=== PATIENT | female | born 1980 | race Caucasian/White ===

== ENCOUNTER 2018-11-04 12:30 | Inpatient (IN) | payer OTHER ==
[~2018-11-04] VITALS: Ht 165.1 cm; Wt 95.5 kg
[2018-11-04 01:30] VITALS: BP 154/83; PULSE 76; RESP 19
[~2018-11-04 12:30] MED LIST: METH-480 PO; PNV1TABL43 PO
[2018-11-04 17:07] VITALS: Ht 165.1 cm; Wt 95.5 kg
[2018-11-04] MEDS ORDERED: LACTATED RINGER'S 1,000 ML IV SCH ×2 (17:10→23:11)
[2018-11-04] MEDS ORDERED: LABE200T25 PO (17:10)
[2018-11-04] MEDS ORDERED: OXYTOCIN 30 UNITS/LR 500 ML IV SCH ×2 (17:30→23:11)
[2018-11-04] MEDS ORDERED: MISOPROSTOL 200 MCG TAB PR PRN ×2 (17:30→23:30)
[2018-11-04] MEDS ORDERED: OXYTOCIN 30 UNITS/LR 500 ML IV PRN ×2 (17:30→23:30)
[2018-11-04] MEDS ORDERED: CARBOPROST 250 MCG INJ IM PRN ×2 (17:30→23:30)
[2018-11-04] MEDS ORDERED: METHYLERGONOVINE 0.2 MG INJ IM PRN ×2 (17:30→23:30)
[2018-11-04] MEDS ORDERED: CEFAZOLIN 2 GM/50 ML (PMX) 50 ML IVPB SCH (17:30)
[2018-11-04] MEDS ORDERED: morphine SULFATE/PF (10 MG/10 ML) INJ ONE (21:08)
[2018-11-04] MEDS ORDERED: OXYTOCIN 10 UNIT INJ ONE ×2 (21:09→21:40)
[2018-11-04] MEDS ORDERED: ONDANSETRON 4 MG INJ ONE (21:09)
--- NOTE | 2018-11-04 21:19 | PREOPHP ---
DATE OF ADMISSION: 11/04/2018 HISTORY OF PRESENT ILLNESS: This is a 38-year-old lady, 2, para 1, EDC 11/12/2018, at 37 and 3/7 weeks, admitted to labor and delivery area for repeat today. This patient has a histo ry of -induced hypertension and is presently on medication. She came from Dr. Pichardo's saw o ffice today and sent the patient to the hospital for delivery. She advised the patient to have C-sec tion today for -induced hypertension. The procedures were explained to the patient and she understood everything totally. The risks, benefits, and alternatives were discussed with her as well . She also wanted to go for tubal ligation. PAST PERSONAL HISTORY: No history of TB, asthma. ALLERGIES: NO ALLERGIES. SOCIAL HISTORY: The patient does not smoke. She does not drink. MEDICATIONS: She does not take any drugs except her iron and vitamins. GYNECOLOGIC HISTORY: She had menarche at the age of 8, every 28 days' interval, 3 to 4 days' durati on, and moderate in amount. FAMILY HISTORY: Parents have diabetes. Father has hypertension and heart disease. She is 2 , para 1. Her first delivery was in 2013 by . REVIEW OF SYSTEMS: CARDIOVASCULAR: No chest pains. RESPIRATORY: No cough. GASTROINTESTINAL: No diarrhea. No vomiting. GENITOURINARY: No dysuria. PHYSICAL EXAMINATION: GENERAL: Reveals a conscious, coherent lady and in no acute distress. VITAL SIGNS: Her blood pressure 150/90, pulse rate 80 per minute, respirations 16 per minute. BREASTS, HEART AND LUNGS: Within normal limits. ABDOMEN: Soft. No tenderness noted. Fundic height 37 cm. heart tones 140 per minute. PELVIC: Revealed the cervix to be closed, station, floating, in cephalic presentation with the bag o f water intact. EXTREMITIES: 2+ pedal edema. ADMITTING DIAGNOSES: This is a 37 and 3/7 weeks intrauterine with 1 previous and severe -induced hypertension and multiparity. PLAN: The patient was planned to have a repeat , plus tubal ligation today per Dr. Pichardo's recommendation. Dictated By: FORREST PADGETT/ESVIN Conf#: [id number] DID#: [id number]
--- NOTE | 2018-11-04 21:26 | PREAC ---
Date/Time of Note Date/Time of Note DATE: 11/04/18 TIME: 21:23 Anesthesia Eval and Record Evaluation Time Pre-Procedure Interview DATE: 11/04/18 TIME: 21:23 Age 38 Sex female NPO: 8 hrs Preoperative diagnosis IUP Planned procedure Csection Past Medical History Past Medical History: Includes Cardio: HTN GI: Morbid obesity Surgery & Anesthesia Issues No known issue Meds Anticoagulation: No Beta Jeanne within 24 hr: Yes Reason Beta Jeanne not given: Pt. not on B-Jeanne Reported Medications Labetalol Hcl* (Labetalol Hcl*) 200 Mg Tablet, 200 MG PO BID, TAB 11/04/18 Vit/Fe Fumarate/Fa* ( Vitamin Tablet*) 1 Tab Tablet, 1 TAB PO DAILY 03/31/14 Methyldopa* (Aldomet*) 500 Mg Tab, 500 MG PO TID, TAB 03/31/14 Current Medications Lactated Ringer's 1,000 ml @ 125 mls/hr Q8H IV Last administered on 11/04/18at 17:26; Admin Dose 125 MLS/HR; Start 11/04/18 at 17:10 Cefazolin Sodium/ Dextrose 50 ml @ 100 mls/hr ONCE IVPB ; Start 11/04/18 at 17:30 Oxytocin/Lactated Ringer's 500 ml @ 125 mls/hr POST IV ; Start 11/04/18 at 17:30 Oxytocin/Lactated Ringer's 500 ml @ 0 mls/hr ONCE PRN IV VAGINAL BLEEDING; Start 11/04/18 at 17:30 Methylergonovine Maleate (Methergine) 0.2 mg ONCE PRN IM VAGINAL BLEEDING; Start 11/04/18 at 17:30 Carboprost Tromethamine (Hemabate) 250 mcg ONCE PRN IM VAGINAL BLEEDING; Start 11/04/18 at 17:30 Misoprostol (Cytotec) 1,000 mcg ONCE PRN SC VAGINAL BLEEDING; Start 11/04/18 at 17:30 Meds reviewed: Yes Allergies Coded Allergies: No Known Allergy (Unverified , 03/31/14) Allergies Reviewed: Yes Labs/Studies Labs Reviewed: Reviewed by anesthesiologist Result Diagram: 11/04/18 1725 11/04/18 1725 Laboratory Tests 11/04/18 17:25 Blood Bank Test 11/04/18 17:25 Antibody Screen NEGATIVE Blood Type O POSITIVE Rh Immune Globulin Candidate NO test: Positive Studies: ECG Pre-procedure Exam Last vitals BP:180/85, pulse:90, spo2:100%, T:98,8 Airway: Adequate mouth opening, Adequate thyromental dist Mallampati: Mallampati II Teeth: Normal Lung: Normal Heart: Normal ASA Physical Status ASA physical status: 3 Emergency: E Planned Anesthetic Neuraxial: Spinal Planned Pain Management Sub-arachniod narcotics, Parenteral pain med Pre-operative Attestations Prior to commencing anesthesia and surgery, the patient was re-evaluated, there was verification of: *The patient's identity *The results of appropriate recent lab work and preoperative vital signs *The above evaluation not changing prior to induction *Anesthetic plan, risk benefits, alternative and complications discussed with patient/family; questions answered; patient/family understands, accepts and wishes to proceed. FAHEEM NEGRETE MD Nov 04, 2018 21:26
[2018-11-04] MEDS ORDERED: DIPHENHYDRAMINE 50 MG INJ IV PRN (22:30)
[2018-11-04] MEDS ORDERED: NALOXONE (0.4 MG/ML) INJ IV PRN (22:30)
[2018-11-04] MEDS ORDERED: ONDANSETRON 4 MG INJ IV PRN (22:30)
--- NOTE | 2018-11-04 22:32 | PAC ---
Date/Time of Note Date/Time of Note DATE: 11/04/18 TIME: 22:31 Post-Anesthesia Notes Post-Anesthesia Note Activity: WNL Respiratory function: WNL Cardiovascular function: WNL Mental status: Baseline Pain reasonably controlled: Yes Hydration appropriate: Yes Nausea/Vomiting absent: Yes Comments BP:120/56,pulse;78,spo2:100%, T:98,8 FAHEEM NEGRETE MD Nov 04, 2018 22:32
[2018-11-04] MEDS ORDERED: MAGNESIUM SULFATE 20 GM/500 ML 500 ML IV ONE (22:54)
[2018-11-04] MEDS ORDERED: MAGNESIUM SULFATE 4 GM/100 ML 100 ML ONE (22:54)
[2018-11-04] MEDS ORDERED: MAGNESIUM SULFATE 4 GM/100 ML 100 ML IVPB ONE (23:00)
[2018-11-04] MEDS ORDERED: morphine SULFATE/PF (2 MG/2 ML) SYG IV PRN (23:00)
[2018-11-04] MEDS: MAGNESIUM SULFATE 20 GM/500 ML 500 ML IV SCH (23:30)
[2018-11-04] MEDS ORDERED: METHYLERGONOVINE 0.2 MG TAB PO PRN (23:30)
[2018-11-04] MEDS ORDERED: CEFAZOLIN 1 GM/50 ML (PMX) 50 ML IVPB ONE (23:30)
[2018-11-04] MEDS ORDERED: HYDROCODONE/APAP (5/325) TAB PO PRN ×2 (23:30)
[2018-11-04] MEDS ORDERED: LANOLIN HPA 1 PKT TOP PRN (23:30)
[2018-11-05] VITALS (18 sets, daily range): BP systolic 111–159; BP diastolic 61–97; PULSE 72–98; RESP 16–20
[2018-11-05] MEDS ORDERED: CEFAZOLIN 1 GM/50 ML (PMX) 50 ML IVPB ONE (02:00)
--- NOTE | 2018-11-05 05:47 | NUR ---
eoss. stable. no respiratory distress.denies pain or any discomfort. scanty bleeding . oral fluids tolerated well. bonding well with baby . for cbc & magnesium level @ 0600.
[2018-11-05] MEDS: SENNA/DOCUSATE NA (8.6MG/50MG) TAB PO SCH ×2 (09:22→21:12)
[2018-11-05] MEDS: MAGNESIUM SULFATE 20 GM/500 ML 500 ML IV SCH ×2 (09:26→19:42)
[2018-11-05] MEDS: IBUPROFEN 800 MG TAB PO SCH ×3 (09:28→22:00)
[2018-11-05] MEDS: KETOROLAC 30 MG INJ IV PRN ×2 (10:45→21:05)
[2018-11-05] MEDS: LABETALOL 200 MG TAB PO SCH ×2 (13:30→21:16)
--- NOTE | 2018-11-05 19:48 | NUR ---
eoss: álvarez patent, iv patent, denies h/a, nausea, epigastric pain, bonding well with baby, abd dsg dry and intact, lochia small, fundus firm, apumps continuous, no distress noted this shift, kristina po fluids.
[2018-11-06] VITALS: BP 125/80; PULSE 86; RESP 18
[2018-11-06 04:00] VITALS: BP 124/64; PULSE 93; RESP 20
[2018-11-06] MEDS: MAGNESIUM SULFATE 20 GM/500 ML 500 ML IV SCH (05:30)
--- NOTE | 2018-11-06 05:45 | NUR ---
EOSS: PATIENT IN STABLE CONDITION. BONDING WITH INFANT. AND FEEDING FORMULA VIA BOTTLE, MOTHER'S REQUEST. FUNDUS FIRM, SCANT AMOUNT OF LOCHIA. AMBULATING AND VOIDING, PASSING GAS, DUE TO BM. ORIGINAL C/S DRESSING DRY AND INTACT.
[2018-11-06] MEDS: IBUPROFEN 800 MG TAB PO SCH ×3 (05:57→21:35)
[2018-11-06] MEDS ORDERED: BISACODYL 10 MG SUPP PR ONE (06:00)
[2018-11-06] MEDS ORDERED: MAGNESIUM HYDROXIDE 30ML CUP PO ONE (06:00)
[2018-11-06 07:45] VITALS: BP 136/77; PULSE 70; RESP 18
[2018-11-06] MEDS: OXYCODONE/ACETAMINOPHEN (5/325) TAB PO PRN ×2 (08:03→12:16)
[2018-11-06] MEDS: SENNA/DOCUSATE NA (8.6MG/50MG) TAB PO SCH ×2 (08:48→21:35)
[2018-11-06] MEDS: LABETALOL 200 MG TAB PO SCH ×2 (08:49→21:36)
[2018-11-06 12:00] VITALS: BP 117/64; PULSE 81; RESP 18
[2018-11-06 16:00] VITALS: BP 115/64; PULSE 79; RESP 16
--- NOTE | 2018-11-06 17:09 | NUR ---
eoss: vss, b/p controlled with labetalol, bonding well with baby, kristina po food and fluids without difficulty, fundus firm, lochia small, incision abd intact with steri strips, lochia small, seen by dr escalante.
--- NOTE | 2018-11-06 18:17 | PN ---
Date/Time of Note Date/Time of Note DATE: 11/05/18 TIME: 11:00 Assessment/Plan VTE Prophylaxis Risk score (from Ns)>0 risk: 5 SCD applied (from Ns): No SCD contraindicated: low risk/ambulating Pharmacological prophylaxis: NA/contraindicated Pharm contraindication: low risk/ambulating Lines/Catheters [facility] [place]ong Assessment/Plan Assessment/Plan POSTCSECTION DAY 1 ORDERED ADVANCE DIET TOLERATED CBC ON 3RD POSTOP DAY Result Diagram: 11/06/18 0717 11/04/18 1725 Results 24hrs Laboratory Tests Test 11/06/18 07:17 White Blood Count 11.3 #H Red Blood Count 3.55 L Hemoglobin 10.9 L Hematocrit 31.4 L Mean Corpuscular Volume 88.5 Mean Corpuscular Hemoglobin 30.7 Mean Corpuscular Hemoglobin Concent 34.7 Red Cell Distribution Width 13.6 Platelet Count 183 Mean Platelet Volume 10.4 Immature Granulocytes % 0.400 Neutrophils % 83.6 H Lymphocytes % 9.4 L Monocytes % 6.0 Eosinophils % 0.4 Basophils % 0.2 Nucleated Red Blood Cells % 0.0 Immature Granulocytes # 0.050 H Neutrophils # 9.4 H Lymphocytes # 1.1 Monocytes # 0.7 Eosinophils # 0.0 Basophils # 0.0 Nucleated Red Blood Cells # 0.0 Subjective 24 Hr Interval Summary Free Text/Dictation POST CSECTION DAY 1 COMPLAIN OF INCISIONAL PAINS GOOD URINE OUTPUT PASSING GAS PER RECTUM NO BOWEL MOVEMENT YET Exam/Review of Systems Vital Signs Vitals Vital Signs Date Temp Pulse Resp B/P (MAP) Pulse Ox O2 O2 Flow FiO2 Time Delivery Rate 11/06/18 98.6 79 16 115/64 Room Air 16:00 (81) 11/06/18 99 07:45 Intake and Output 11/05/18 11/05/18 11/06/18 1515:00 23:00 07:00 IntakeIntake Total 2685 ml 950 ml 280 ml OutputOutput Total 2175 ml 1750 ml 830 ml BalanceBalance 510 ml -800 ml -550 ml Exam VITAL SIGNS STABLE: YES AFEBRILE: YES BREAST NOT ENGORGED, NON-TENDER, NO APPRECIABLE MASS: YES LUNGS CLEAR, NO RALES, WHEEZES, RHONCHI: YES SINUS RHYTHM WITHOUT MURMUR: YES ABDOMEN: NON-TENDER FUNDUS: BELOW UMBILICUS BOWEL SOUNDS: PRESENT UTERUS: FIRM INCISION (CLEAN, DRY, AND INTACT): YES LOCHIA: LIGHT DEEP TENDON REFLEXES: 0 EXTREMITIES: NO CALF TENDERNESS EDEMA SCALE: NONE Medications Medications Current Medications Morphine Sulfate (morphine SULFATE (PF)) 2 mg Q3H PRN IV PAIN LEVEL 1-5; Start 11/04/18 at 23:00 Methylergonovine Maleate (Methergine) 0.2 mg Q6H PRN PO VAGINAL BLEEDING; Start 11/04/18 at 23:30 Acetaminophen/ Hydrocodone Bitart ([place] (5/325)) 1 tab Q4H PRN PO PAIN LEVEL 4-6; Start 11/04/18 at 23:30 Acetaminophen/ Hydrocodone Bitart ([place] (5/325)) 2 tab Q4H PRN PO PAIN LEVEL 7-10; Start 11/04/18 at 23:30 Ibuprofen (Motrin) 800 mg Q8 PO Last administered on 11/06/18at 14:09; Admin Dose 800 MG; Start 11/05/18 at 06:00 Simethicone (Mylicon) 160 mg Q8H PRN PO DISTENSION/GAS/BLOATING; Start 11/04/18 at 23:30 Senna/Docusate Sodium (Senokot-S) 1 tab BID PO Last administered on 11/06/18at 08:48; Admin Dose 1 TAB; Start 11/05/18 at 09:00 Lanolin (Lanolin Hpa) 1 applic BEDSIDE MEDICATION PRN TOP BEDSIDE FOR MARGA TO NIPPLES Last administered on 11/05/18at 09:26; Admin Dose 1 APPLIC; Start 11/04/18 at 23:30 Oxytocin/Lactated Ringer's 500 ml @ 0 mls/hr ONCE PRN IV VAGINAL BLEEDING; Start 11/04/18 at 23:30 Methylergonovine Maleate (Methergine) 0.2 mg ONCE PRN IM VAGINAL BLEEDING; Start 11/04/18 at 23:30 Carboprost Tromethamine (Hemabate) 250 mcg ONCE PRN IM VAGINAL BLEEDING; Start 11/04/18 at 23:30 Misoprostol (Cytotec) 1,000 mcg ONCE PRN DE VAGINAL BLEEDING; Start 11/04/18 at 23:30 Oxycodone/ Acetaminophen (Percocet (5/ 325)) 1 tab Q4H PRN PO PAIN Last adm inistered on 11/06/18at 12:16; Admin Dose 1 TAB; Start 11/04/18 at 23:30 Labetalol HCl (Normodyne) 200 mg BID PO Last administered on 11/06/18at 08:49; Admin Dose 200 MG; Start 11/05/18 at 13:30 FORREST KOEHLER MD Nov 06, 2018 18:17
--- NOTE | 2018-11-06 18:19 | PN ---
Date/Time of Note Date/Time of Note DATE: 11/06/18 TIME: 12:00PM Assessment/Plan VTE Prophylaxis Risk score (from Nsg)>0 risk: 5 SCD applied (from Nsg): No SCD contraindicated: low risk/ambulating Pharmacological prophylaxis: NA/contraindicated Pharm contraindication: low risk/ambulating Lines/Catheters IV Catheter Type (from Nrsg): Gro[place]ong Assessment/Plan Assessment/Plan POST CSECTION DAY 2 HOME TOMORROW CBC TOMORROW COUNSELED INSTRUCTED PRESCRIPTION GIVEN FOR PAIN RETURN TO CLINIC IN 2 WEEKS CALL OFFICE IF THERE IS ANY PROBLEM OR CONCERN CONTINUE WITH VITAMINS OD AND FERROUS SULFATE 325MG PO TID DIET ADVISED Result Diagram: 11/06/18 0717 11/04/18 1725 Results 24hrs Laboratory Tests Test 11/06/18 07:17 White Blood Count 11.3 #H Red Blood Count 3.55 L Hemoglobin 10.9 L Hematocrit 31.4 L Mean Corpuscular Volume 88.5 Mean Corpuscular Hemoglobin 30.7 Mean Corpuscular Hemoglobin Concent 34.7 Red Cell Distribution Width 13.6 Platelet Count 183 Mean Platelet Volume 10.4 Immature Granulocytes % 0.400 Neutrophils % 83.6 H Lymphocytes % 9.4 L Monocytes % 6.0 Eosinophils % 0.4 Basophils % 0.2 Nucleated Red Blood Cells % 0.0 Immature Granulocytes # 0.050 H Neutrophils # 9.4 H Lymphocytes # 1.1 Monocytes # 0.7 Eosinophils # 0.0 Basophils # 0.0 Nucleated Red Blood Cells # 0.0 Subjective 24 Hr Interval Summary Free Text/Dictation POST CSECTION DAY 2 LITTLE BOWEL MOVEMENT GOOD URINE OUTPUT FEELS LESS INCISIONAL PAINS Exam/Review of Systems Vital Signs Vitals Vital Signs Date Temp Pulse Resp B/P (MAP) Pulse Ox O2 O2 Flow FiO2 Time Delivery Rate 11/06/18 98.6 79 16 115/64 Room Air 16:00 (81) 11/06/18 99 07:45 Intake and Output 11/05/18 11/05/18 11/06/18 1515:00 23:00 07:00 IntakeIntake Total 2685 ml 950 ml 280 ml OutputOutput Total 2175 ml 1750 ml 830 ml BalanceBalance 510 ml -800 ml -550 ml Exam VITAL SIGNS STABLE: YES AFEBRILE: YES BREAST NOT ENGORGED, NON-TENDER, NO APPRECIABLE MASS: YES LUNGS CLEAR, NO RALES, WHEEZES, RHONCHI: YES SINUS RHYTHM WITHOUT MURMUR: YES ABDOMEN: NON-TENDER FUNDUS: BELOW UMBILICUS BOWEL SOUNDS: PRESENT UTERUS: FIRM INCISION (CLEAN, DRY, AND INTACT): YES LOCHIA: LIGHT DEEP TENDON REFLEXES: 0 EXTREMITIES: NO CALF TENDERNESS EDEMA SCALE: NONE Medications Medications Current Medications Morphine Sulfate (morphine SULFATE (PF)) 2 mg Q3H PRN IV PAIN LEVEL 1-5; Start 11/04/18 at 23:00 Methylergonovine Maleate (Methergine) 0.2 mg Q6H PRN PO VAGINAL BLEEDING; Start 11/04/18 at 23:30 Acetaminophen/ Hydrocodone Bitart ([place] (5/325)) 1 tab Q4H PRN PO PAIN LEVEL 4-6; Start 11/04/18 at 23:30 Acetaminophen/ Hydrocodone Bitart ([place] (5/325)) 2 tab Q4H PRN PO PAIN LEVEL 7-10; Start 11/04/18 at 23:30 Ibuprofen (Motrin) 800 mg Q8 PO Last administered on 11/06/18at 14:09; Admin Dose 800 MG; Start 11/05/18 at 06:00 Simethicone (Mylicon) 160 mg Q8H PRN PO DISTENSION/GAS/BLOATING; Start 11/04/18 at 23:30 Senna/Docusate Sodium (Senokot-S) 1 tab BID PO Last administered on 11/06/18at 08:48; Admin Dose 1 TAB; Start 11/05/18 at 09:00 Lanolin (Lanolin Hpa) 1 applic BEDSIDE MEDICATION PRN TOP BEDSIDE FOR MARGA TO NIPPLES Last administered on 11/05/18at 09:26; Admin Dose 1 APPLIC; Start 11/04/18 at 23:30 Oxytocin/Lactated Ringer's 500 ml @ 0 mls/hr ONCE PRN IV VAGINAL BLEEDING; Start 11/04/18 at 23:30 Methylergonovine Maleate (Methergine) 0.2 mg ONCE PRN IM VAGINAL BLEEDING; Start 11/04/18 at 23:30 Carboprost Tromethamine (Hemabate) 250 mcg ONCE PRN IM VAGINAL BLEEDING; Start 11/04/18 at 23:30 Misoprostol (Cytotec) 1,000 mcg ONCE PRN MA VAGINAL BLEEDING; Start 11/04/18 at 23:30 Oxycodone/ Acetaminophen (Percocet (5/ 325)) 1 tab Q4H PRN PO PAIN Last administered on 11/06/18at 12:16; Admin Dose 1 TAB; Start 11/04/18 at 23:30 Labetalol HCl (Normodyne) 200 mg BID PO Last administered on 11/06/18at 08:49; Admin Dose 200 MG; Start 11/05/18 at 13:30 FORREST KOEHLER MD Nov 06, 2018 18:19
[2018-11-06 21:00] VITALS: BP 122/69; PULSE 71; RESP 17
[2018-11-07 04:00] VITALS: BP 119/64; PULSE 74; RESP 16
[2018-11-07] MEDS: IBUPROFEN 800 MG TAB PO SCH (05:44)
--- NOTE | 2018-11-07 06:34 | NUR ---
EOSS: PATIENT IN STABLE CONDITION, BLOOD PRESSURES ARE WNL, IS ON LABETALOL BID, BONDS WELL WITH BABY, EXPECTED DISCHARGE TODAY.
[2018-11-07 08:00] VITALS: BP 107/72; PULSE 68; RESP 18
[2018-11-07] MEDS: SENNA/DOCUSATE NA (8.6MG/50MG) TAB PO SCH (09:24)
[2018-11-07] MEDS: LABETALOL 200 MG TAB PO SCH (09:24)
--- NOTE | 2018-11-07 12:38 | NUR ---
PT D/C HOME WITH THE BABY IN STABLE CONDITION ,D/C CARE INSTRUCTION GIVEN AND INSTRUCTED TO FOLLOW UP IN THE CLINIC IN 1 WEEK, CALL CLINIC FOR FOLLOW UP APPOINTMENT. PT VERBALIZED UNDERSTANDING.
--- NOTE | 2018-11-09 00:38 | OPR ---
DATE OF OPERATION: 11/04/2018 PREOPERATIVE DIAGNOSES: 1. A 37-3/7 weeks' intrauterine with 1 previous . 2. Severe -induced hypertension. 3. Multiparity. 4. The patient desires sterilization. 5. Advanced maternal age. POSTOPERATIVE DIAGNOSES: 1. A 37-3/7 weeks' intrauterine with 1 previous . 2. Severe -induced hypertension. 3. Multiparity. 4. The patient desires sterilization. 5. Advanced maternal age. 6. Severe pelvic and abdominal adhesions. SURGEON: Forrest Coronado M.D. COMMERCIAL LEASE ADMINISTRATOR: Deb Nuñez M.D. ANESTHESIA: Spinal. ANESTHESIOLOGIST: Michael Mullins M.D. OPERATION PERFORMED: Repeat low transverse section plus bilateral tubal ligation and lysis of severe pelvic and abdominal adhesions. OPERATIVE TECHNIQUE: Under spinal anesthesia, the patient was prepped and draped in the usual fashio n for abdominal surgery. After checking for the effect of the anesthesia, the previous Pfannenstiel scar was excised. A 12-cm skin incision was performed. The incision was carried from the skin up to the fascia. Upon opening the skin up to the fascia, small blood vessels were noted to be oozing and these were all cauterized. Fascia was opened transversely followed by splitting the muscles vertica lly and the peritoneum vertically. Upon opening the abdominal cavity, the omentum was noted to be at tached all over the anterior parietal peritoneum. All these adhesions were lysed by sharp and blunt dissection. After lysing the adhesions, then the bladder blade was put in place. A small christine was p erformed from the serosa up to the endometrium on the lower uterine segment and the christine was carried sideways with the aid of my 2 fingers. My left hand was inserted in the lower segment of the uterus and the bag of water was ruptured. Clear fluid was noted. The baby's head was delivered. The baby' s airway was quickly suctioned with amniotic fluid. There was 1 loop of cord around the baby's neck that needed to be released prior to the delivery of the rest of the body of the baby. The baby's cor d was clamped after 30 seconds and baby was handed to the NICU team. The placenta was delivered manu ally and complete. The uterus was exteriorized. The uterus was cleansed with wet lap sponge to make sure that no membranes were left behind. After correct sponge count, the uterus was closed in the usual fashion using #1 chromic for the first layer. Continuous locking suture was used followed by #1 chromic for the second layer. Imbricating sutures were used. Bleeders were checked, and ther e was no bleeding noted. After checking for any bleeders, in which there were none, both tubes and o varies were inspected. They were healthy looking. The right tube was grasped on the center where th e avascular area was. A 1-cm tube was stick-tied at the proximal and distal portions with 2-0 silk, stick-tie with 2-0 chromic above the first silk tie and another free tie with 2-0 chromic above the s econd tie. The right tube was cut, and the cut ends were cauterized. The right fimbria was identifi ed. Same thing was done on the left side. The left fimbria was identified. Both 2 ovaries were mari ntified. They were healthy looking. The back of the uterus and the broad ligament were checked for any hematoma and there was none noted. The uterus was put back to the pelvic cavity. Once again, ut erine incision was checked for any bleeders and there was no bleeding noted. After correct sponge co unt, needle count and instrument count as confirmed by the field technical specialist and division commander, the abdomen was closed in the usual fashion using 0 Vicryl for the peritoneum, 0 Vicryl for the muscles. For the fa scia, 0 Vicryl continuous stitch was used followed by few [id number] suture. For the subcutaneo us tissue, it was closed with 3-0 Vicryl and the skin was closed with 3-0 Vicryl. Subcuticular sutur e was used. The patient tolerated the procedure well. Estimated blood loss about 600 mL. Vital sig ns were stable during and after the procedure. She delivered a healthy baby boy, Apgars 8 and 9 on 01/05/2018 at 2138 p.m., weighing 6 pounds 14 ounces, 3115 grams, 18 inches long. Dictated By: FORREST PADGETT/ESVIN Conf#: [id number] DID#: [id number] CC: DEB NUÑEZ MD;*End*
== END 2018-11-07 13:49 | disposition home or self-care (01) | DRG 785 ==
LOC: L-D 16:40 → PP1 11-05 01:47
PROVIDERS: ADMIT Obstetrics & Gynecology; ATTEND Obstetrics & Gynecology
PROC: 0U570ZZ Destruction of Bilateral Fallopian Tubes, Open Approach (ICD-10-PCS; 2018-11-04)
PROC: 0DNW0ZZ Release Peritoneum, Open Approach (ICD-10-PCS; 2018-11-04)
PROC: 10D00Z1 Extraction of Products of Conception, Low, Open Approach (ICD-10-PCS; principal; 2018-11-04 20:00)
DX: O13.4 Gestational [pregnancy-induced] hypertension without significant proteinuria, complicating childbirth (principal); O34.211 Maternal care for low transverse scar from previous cesarean delivery; O99.214 Obesity complicating childbirth; O99.89 Other specified diseases and conditions complicating pregnancy, childbirth and the puerperium; E66.01 Morbid (severe) obesity due to excess calories; N73.6 Female pelvic peritoneal adhesions (postinfective); Z37.0 Single live birth; Z3A.37 37 weeks gestation of pregnancy; Z30.2 Encounter for sterilization
CPT/HCPCS: 80053; 83735; 85025; 85610; 85730; 86592; 86850; 86900; 86901; 87340; 88302; 99464; J0690; J1885; J2274; J2405; J2590; J3475; J7120